=== PATIENT | female | born 1970 | race Caucasian/White ===

== ENCOUNTER → 2017-04-12 | Outpatient (CLI) | payer BC ==
[2004-08-20 07:23] VITALS: BP 117/65; PULSE 75
[~2017-04-12] MED LIST: CELEXA 20MG20 MG/TAB PO; CLOMID50 MG PO; MULTIPLE VITAMI1 CAP PO; OXY IR5 MG PO; PRENATAL1 TA1 PO
== END ==
LOC: BHSO 13:52
DX: F33.1 Major depressive disorder, recurrent, moderate (principal)
CPT/HCPCS: 90791-AI

== ENCOUNTER → 2017-05-16 | Outpatient (CLI) | payer BC ==
[2004-08-20 07:23] VITALS: BP 117/65; PULSE 75
== END ==
LOC: BHSO 14:47
DX: F41.1 Generalized anxiety disorder (principal)

== ENCOUNTER → 2018-02-02 | Outpatient (CLI) | payer BC | LOC: BHSO 10:00 | DX: F41.1 Generalized anxiety disorder (principal) | CPT/HCPCS: G0463 ==

== ENCOUNTER 2021-08-01 07:42 | Observation (INO) | payer BC ==
[~2021-08-01] VITALS: Ht 12.7 cm; Wt 74.7 kg
[2021-08-01 09:07] LABS: BASO # 0.1 K/mm3 (0.0-0.2); BASO % 0.6 % (0.0-2.0); EOS # 0.1 K/mm3 (0.0-0.7); EOS % 0.8 % (0-4.0); GRAN # 6.6 K/mm3 (1.4-6.5); GRAN % 79.1 % (42.2-75.2); HEMATOCRIT 33.5 % (37.0-47.0); HEMOGLOBIN 11.5 g/dl (12.5-16.0); LYMPH % 12.2 % (20.0-51.0); MEAN CELL VOLUME 94 fl (80.0-100.0); MEAN CORPUSCULAR HEMOGLOBIN 32 pg (27.0-31.0); MEAN CORPUSCULAR HGB CONC 34 g/dl (33.0-37.0); MEAN PLATELET VOLUME 9.8 fl (7.4-10.4); MONO # 0.6 K/mm3 (0.1-0.6); MONO % 6.9 % (1.7-9.3); PLATELET COUNT 247 K/mm3 (130-400); RED BLOOD COUNT 3.58 M/mm3 (4.10-5.30); REDCELL DISTRIBUTION WIDTH-CV 12.2 % (11.5-14.5)
[2021-08-01 09:24] LABS: ALBUMIN 3.7 gm/dL (3.5-5.0); BILIRUBIN,TOTAL 0.7 mg/dL (0.2-1.2); CALCIUM 9.5 mg/dL (8.4-10.2); CREATININE, serum 0.79 mg/dL (0.57-1.11); POTASSIUM 3.5 mmol/L (3.5-4.5); TOTAL PROTEIN 7.3 gm/dL (6.2-8.1)
[2021-08-01] MEDS ORDERED: LIPITOR 40MG TA40 MG PO (12:07)
[2021-08-01] MEDS ORDERED: ASPIRIN E.C. 8181 MG PO (12:08)
[2021-08-01] MEDS ORDERED: PROTONIX 40MG T40 MG PO (12:08)
[2021-08-01] MEDS ORDERED: PLAVIX 75MG TAB75 MG PO (12:09)
[2021-08-01] MEDS ORDERED: TOPROL XL 25MG25 MG PO (12:09)
[2021-08-01] MEDS ORDERED: MASON NATURAL2000 IU PO (12:10)
[2021-08-01] MEDS ORDERED: PHARMASSURE ZIN50 MG PO (12:11)
[2021-08-01] MEDS ORDERED: VITAMINC1000TA PO (12:11)
--- NOTE | 2021-08-01 12:45 | NUR ---
Patient to room 346 from the ED. Patient ambulated independently in the room. A&Ox4. VSS. IV CDI. Denies pain, discomfort and chest pain. Incision site left upper chest CDI. No further needs expressed. Call light within reach. Nurse oriented the patient to location, room and call light
[2021-08-01 14:04] VITALS: BP 114/70; PULSE 80; TEMP 98.2
[2021-08-01 15:42] VITALS: BP 104/62; PULSE 91; TEMP 98.1
--- NOTE | 2021-08-01 17:33 | NUR ---
Patient laying in bed watching TV. Reports that she had a headache, but that it is going away and does not want pain medication yet. A&Ox4. VSS. No reports of chest discomfort, throbbing or pain. IV CDI. Patient independent in the room. Call light within reach
[2021-08-01 21:06] VITALS: BP 98/58; PULSE 75; TEMP 97.5
[2021-08-01 23:38] VITALS: BP 94/58; PULSE 88; TEMP 98
[2021-08-02 03:29] VITALS: BP 110/65; PULSE 91; TEMP 98
[2021-08-02 06:56] LABS: BASO % 0.6 % (0.0-2.0); EOS # 0.2 K/mm3 (0.0-0.7); EOS % 2.1 % (0-4.0); GRAN # 4.8 K/mm3 (1.4-6.5); GRAN % 66.7 % (42.2-75.2); HEMOGLOBIN 10.6 g/dl (12.5-16.0); LYMPH # 1.6 K/mm3 (1.2-3.4); LYMPH % 22.1 % (20.0-51.0); MEAN CELL VOLUME 94 fl (80.0-100.0); MEAN CORPUSCULAR HEMOGLOBIN 32 pg (27.0-31.0); MEAN CORPUSCULAR HGB CONC 35 g/dl (33.0-37.0); MEAN PLATELET VOLUME 10.6 fl (7.4-10.4); MONO # 0.6 K/mm3 (0.1-0.6); MONO % 8.1 % (1.7-9.3); PLATELET COUNT 228 K/mm3 (130-400); RED BLOOD COUNT 3.28 M/mm3 (4.10-5.30); REDCELL DISTRIBUTION WIDTH-CV 12.4 % (11.5-14.5)
[2021-08-02 07:05] LABS: HEMATOCRIT 30.7 % (37.0-47.0)
[2021-08-02 07:23] LABS: CALCIUM 9.1 mg/dL (8.4-10.2); CREATININE, serum 0.67 mg/dL (0.57-1.11); POTASSIUM 4.2 mmol/L (3.5-4.5)
[2021-08-02 07:30] VITALS: BP 108/62; PULSE 69; TEMP 98
--- NOTE | 2021-08-02 08:00 | NUR ---
Patient sleeping, easily awakened with verbal command. A&Ox4. Reports being drowsy and tired. VSS. IV CDI. Denies chest pain, discomfort. Telemetry on chest. Wants to go back to bed, will call if needing assistance. Call light within reach
[2021-08-02] MEDS ORDERED: ALDACTONE 25MG25 M1 PO (10:14)
[2021-08-02] MEDS ORDERED: IMDUR 30MG30 MG/TAB PO (10:14)
[2021-08-02] MEDS ORDERED: TOPROL XL 25MG25 MG PO (10:14)
--- NOTE | 2021-08-02 13:35 | NUR ---
Discharge paperwork reviewed with the patient. Patient verbalized an understanding to follow doctors orders. IV removed, tip intact. No further needs expressed. Patient ambulated independently with family to the ED entrance.
--- NOTE | 2021-08-02 13:50 | NUR ---
Patient ambulated independently with nursing staff and family to the ED entrance. Discharge paperwork and personal belonging with the patient. No further needs expressed.
== END 2021-08-02 13:50 | disposition home or self-care (01) ==
LOC: COL.ER 07:42 → SURG 11:53
PROVIDERS: Family Medicine; Physician Assistant; ADMIT Internal Medicine
DX: R00.2 Palpitations (principal); I51.81 Takotsubo syndrome; R55 Syncope and collapse; R11.0 Nausea; E78.5 Hyperlipidemia, unspecified; K21.9 Gastro-esophageal reflux disease without esophagitis; G47.00 Insomnia, unspecified; I25.10 Atherosclerotic heart disease of native coronary artery without angina pectoris; Z79.02 Long term (current) use of antithrombotics/antiplatelets; Z95.0 Presence of cardiac pacemaker; Z79.899 Other long term (current) drug therapy; Z79.82 Long term (current) use of aspirin
CPT/HCPCS: G0378